=== PATIENT | female | born 1980 | race Caucasian/White ===

== ENCOUNTER 2016-08-19 03:10 | Emergency (ER) | payer BC ==
[2016-08-19 03:27] VITALS: BP 131/89
[2016-08-19] MEDS ORDERED: Diphtheria,Pertussis(Acell),Tetanus Vaccine 0.5 ML SDV IM ONE (03:36)
--- NOTE | 2016-08-19 06:12 | ER ---
DATE SEEN: 08/19/2016 HISTORY OF PRESENT ILLNESS: The patient is a 36-year-old, who was drinking tonight and was dancing outside afterwards and says she misstepped and fell hitting the ground sustaining laceration over right eyebrow. She says there is no loss of consciousness. Pain is minimal. No changes in vision. No headache. She says she cannot remember when last tetanus shot was. MEDICATIONS: None. ALLERGIES: No known drug allergies. PAST MEDICAL HISTORY: Noncontributory. REVIEW OF SYSTEMS: CONSTITUTIONAL: No fever. PHYSICAL EXAMINATION: VITAL SIGNS: Stable. HEENT: Pupils equal, round, react to light. Extraocular muscles intact. Oropharyngeal region clear. No trauma to her teeth. Right cheek has contusion. Tenderness over right eyebrow, lateral aspect has a laceration about 2 cm across the eyebrow at the corner edge, linear, superficial. EMERGENCY DEPARTMENT COURSE: The patient's area was cleaned with water and irrigated in normal fashion. No foreign bodies are seen. After the area was prepped, she then had Steri-Strip applied. Then, Dermabond was applied. Good approximation. Close approximation. No complications. The patient tolerated the procedure well. ASSESSMENT: 1. Acute alcohol intoxication. 2. Right eyebrow laceration status post Dermabond repair. PLAN: Head injury. Dermabond wound care instructions given. Tylenol as needed for pain. Ice to the area of contusion. /[id number] GINO/RAMANDEEP
== END 2016-08-19 04:00 | disposition home or self-care (01) ==
LOC: FB.ED 03:10
DX: S01.111A Laceration without foreign body of right eyelid and periocular area, initial encounter (principal); F10.929 Alcohol use, unspecified with intoxication, unspecified; W01.0XXA Fall on same level from slipping, tripping and stumbling without subsequent striking against object, initial encounter
CPT/HCPCS: 12011; 90471; 90715; 99282

== ENCOUNTER 2022-02-13 00:09 | Emergency (ER) | payer BC ==
[2022-02-13] MEDS ORDERED: Thiamine 200 MG/2 ML MDV IVPUSH STA (00:20)
[2022-02-13] MEDS ORDERED: Sodium Chloride 0.9% 10 ML Syringe FLUSH PRN (00:21)
[2022-02-13] MEDS ORDERED: Sodium Chloride 0.9% 1,000 ML IV SCH (00:30)
[2022-02-13 02:08] VITALS: BP 143/93; PULSE 76
== END 2022-02-13 02:30 | disposition home or self-care (01) ==
LOC: FB.ED 00:09
DX: S00.03XA Contusion of scalp, initial encounter (principal); F10.929 Alcohol use, unspecified with intoxication, unspecified; W01.198A Fall on same level from slipping, tripping and stumbling with subsequent striking against other object, initial encounter; Y92.59 Other trade areas as the place of occurrence of the external cause
CPT/HCPCS: 70450; 96360; 99283; J7030